=== PATIENT | female | born 1955 | race Caucasian/White ===

== ENCOUNTER 2016-12-18 11:51 | Emergency (ER) | payer OTHER ==
[~2016-12-18] VITALS: Ht 162.6 cm; Wt 71.5 kg
[~2016-12-18 11:51] MED LIST: OMEPRAZOLE PO; SIMVASTATIN PO; VENLAFAXINE PO
[2016-12-18 11:54] VITALS: Ht 162.6 cm; Wt 71.5 kg
[2016-12-18] MEDS ORDERED: CYCL-319 PO (12:59)
[2016-12-18] MEDS ORDERED: ACET500T98 PO (13:00)
--- NOTE | 2016-12-18 13:05 | ERD ---
ER Documentation Chief Complaint Date/Time DATE: 12/18/16 TIME: 13:01 Chief Complaint upper back pain , rt arm pain x 1 week , no trauma HPI Patient is a 60-year-old female who presents with gradual onset, constant, dull , cramping pain to right upper back for 1 week. Patient denies trauma or fall. She states that the pain is worse with certain movements of her right arm. She occasionally feels some numbness in her right arm. She denies weakness. She denies neck pain. She denies cough, shortness of breath, chest pain. ROS All systems reviewed and are negative except as per history of present illness. Medications Home Meds Active Scripts Acetaminophen (Tylenol) 500 Mg Tab, 500 MG PO Q4 Y for PAIN, #30 TAB Prov:CARLOS BAUTISTA MD 12/18/16 Cyclobenzaprine Hcl* (Cyclobenzaprine Hcl*) 10 Mg Tablet, 10 MG PO TID Y for PAIN, #21 TAB Prov:CARLOS BAUTISTA MD 12/18/16 Reported Medications [Venlafaxine] No Conflict Check, PO DAILY 07/08/16 [Simvastatin] No Conflict Check, PO DAILY 07/08/16 [Omeprazole] No Conflict Check, PO DAILY 07/08/16 Allergies Allergies: Coded Allergies: aspirin (Verified Allergy, Unknown, RASH, PRURITUS, 07/08/16) PMhx/Soc Past medical history: None Past surgical history: Social history: Denies tobacco or alcohol. History of Surgery: Yes () Anesthesia Reaction: No Hx Neurological Disorder: Yes (OCCASIONAL CHAMPAGNE, MIGRAINES) Hx Respiratory Disorders: No Hx Cardiac Disorders: No Hx Psychiatric Problems: No Hx Miscellaneous Medical Probl: Yes (HIGH CHOLESTEROL) Hx Alcohol Use: No Hx Substance Use: No Hx Tobacco Use: No FmHx Family History: No coronary disease, No diabetes Physical Exam Vitals Vital Signs Date Time Temp Pulse Resp B/P Pulse Ox O2 Delivery O2 Flow Rate FiO2 12/18/16 11:54 98.3 82 18 143/67 98 Physical Exam Const: Alert, no acute distress Head: Atraumatic Eyes: Normal Conjunctiva, no pallor or icterus ENT: Normal External Ears, Nose and Mouth. Moist mucous membranes Neck: Full range of motion..~ No meningismus. No paraspinal cervical tenderness. Resp: Clear to auscultation bilaterally no wheezes, rales, rhonchi Cardio: Regular rate and rhythm, no murmurs Abd: Soft, non tender, non distended. No pulsatile mass Skin: No petechiae or dermatomal rash Back: Periscapular and thoracic paraspinal muscle tenderness with spasm. No midline tenderness. Ext: No cyanosis, or edema Neur: Awake and alert, cranial nerves II through XII intact bilaterally, strength and sensation intact in 4 extremities. Psych: Normal Mood and Affect Procedures/MDM MDM: Patient is a 60-year-old female with atraumatic upper back pain for 1 week. She has reproducible tenderness over areas of muscle spasm on exam. Pain is related to movement of the arm. This is consistent with muscle spasm as the cause of her pain. The patient does report intermittent numbness to her right arm which may be related to nerve impingement from cervical muscle spasm. There is currently no deficit on exam. I will treat the patient with Flexeril and Tylenol for pain, have advised the patient to return to ER for any new or worsening symptoms, and to follow-up with PMD in 1 week if symptoms are not improving. Departure Diagnosis: Primary Impression: Muscle spasm of back Condition: Stable Patient Instructions: Muscle Spasm Additional Instructions: Return to the ER for new or worsening symptoms. Follow-up with your PMD if symptoms are not improving within 1 week. Apply heat to the affected area. CARLOS BAUTISTA MD Dec 18, 2016 13:05
[2016-12-18 13:17] VITALS: RESP 18
== END 2016-12-18 13:27 | disposition home or self-care (01) ==
LOC: FTE 11:51
DX: M62.830 Muscle spasm of back (principal)
CPT/HCPCS: 99283